=== PATIENT | female | born 1995 | race Caucasian/White ===

== ENCOUNTER → 2025-08-30 16:22 | Outpatient (CLI) | payer OTHER, SELFPAY ==
[2025-08-30 18:06] LABS: Urine N gonorrhoeae NOT DETECTED
[2025-08-30 18:07] LABS: Urine Chlamydia NOT DETECTED
== END ==
PROVIDERS: PCP Specialist; Visit Provider Obstetrics & Gynecology
DX: Z34.01 Encounter for supervision of normal first pregnancy, first trimester (principal)
CPT/HCPCS: 87491; 87591

== ENCOUNTER → 2025-09-09 10:46 | Outpatient (CLI) | payer OTHER, SELFPAY ==
[2025-09-09 11:59] LABS: Natera Collection Specimen Collected
[2025-09-09 12:00] LABS: Add Manual Diff / Slide Review NO; Hematocrit 37.1 % (36-46); Hemoglobin 12.4 g/dL (12.0-16.0); Lymphocytes Absolute Auto 1700 /uL (1100-4500); Mean Corpuscular HGB Conc 33.4 % (30-36); Mean Corpuscular Hemoglobin 27.1 PG (26-34); Mean Corpuscular Volume 81.3 fL (80-100); Platelet Count 275 X10^3/uL (150-400)
[2025-09-10 18:47] LABS: Hepatitis B Surface Antigen NEGATIVE s/c (NEGATIVE)
[2025-09-10 19:05] LABS: HIV 1 & 2 Ab/Ag 4th Gen Combo NEGATIVE (NEGATIVE); Hep C Virus Ab w/Reflex Quant NEGATIVE s/c (NEGATIVE)
== END ==
PROVIDERS: PCP Specialist; Referring Provider Obstetrics & Gynecology; Visit Provider Obstetrics & Gynecology
DX: Z34.01 Encounter for supervision of normal first pregnancy, first trimester (principal)
CPT/HCPCS: 36415; 80055; 86787; 86803; 86850; 86900; 86901; 87389

== ENCOUNTER → 2025-09-30 11:47 | Outpatient (CLI) | payer OTHER, SELFPAY ==
[2025-09-30 15:47] LABS: Urine N gonorrhoeae NOT DETECTED
[2025-09-30 15:51] LABS: Urine Chlamydia NOT DETECTED
== END ==
PROVIDERS: Obstetrics & Gynecology; PCP Specialist; Referring Provider Specialist; Visit Provider Specialist
DX: Z34.01 Encounter for supervision of normal first pregnancy, first trimester (principal); Z3A.14 14 weeks gestation of pregnancy
CPT/HCPCS: 36415; 82105; 87086; 87491; 87591

== ENCOUNTER → 2025-10-28 10:19 | Outpatient (CLI) | payer OTHER, SELFPAY ==
--- NOTE | 2025-10-28 10:20 | DI.US.S_ITS ---
PROCEDURE: US OB >= 14 WEEKS FETUS INDICATIONS: anatomy scan OUTSIDE/PRIOR DATING DATA: Provided working YESENIA is 03/27[birth year]26 TECHNIQUE: Real-time scanning was performed of the fetus, with image documentation and biometric measurements. COMPARISON: None. FINDINGS: General: A single living intrauterine gestation is present. Presentation: Variable Placenta: Placental position is posterior , without previa. Amniotic fluid index: 10.8 cm, normal range is 5-24 cm. Single deepest vertical pocket is 3.5 cm. heart rate: 150 beats per minute. Maternal cervical canal: 3.9 cm long. Normal lower limit is 2.5 cm. biometrics: Biparietal diameter: 4.4 cm, 19 weeks and 2 days Head circumference: 15.2 cm, 18 weeks and 2 days Abdominal circumference: 13.1 cm 18 weeks and 5 days Femur length: 2.9 cm 18 weeks and 6 days Clinically estimated gestational age: 18 weeks and 4 days Composite gestational age from present scan: 18 weeks and 6 days Estimated weight and percentile: 254 g, 55% Anatomic survey: Neuro: Ventricles are non-dilated at less than 10 mm. Cisterna magna is normal at 3-11 mm. Cerebellum is normal in size and morphology. Nuchal skin fold: Normal at less than 6 mm between 14-21 weeks gestational age. Face: Nose and lips, facial profile are normal. Spine: No evidence for spina bifida. Heart: Outflow tracts appear intact. Four-chamber view not well seen. Diaphragm: Diaphragm is intact. Stomach: Left-sided stomach is present. Kidneys: No hydronephrosis. Normal is less than 5 mm in 2nd trimester, less than 7 mm in 3rd trimester. Cord: 3-vessel cord has orthotopic insertion. Bladder: Normal in size. Extremities: All 4 extremities identified. IMPRESSION: Intrauterine gestation seen with cardiac motion. Normal OLIVIA. EFW within normal limits at 55 percentile. Cardiac four-chamber view was not well seen. No significant abnormalities otherwise on routine anatomic survey. Short interval follow-up is recommended. Dictated by: Santos Dsouza M.D. on 10/28/2025 at 20:10 Approved by: Santos Dsouza M.D. on 10/28/2025 at 20:15
== END ==
PROVIDERS: PCP Specialist; Visit Provider Obstetrics & Gynecology
DX: Z34.02 Encounter for supervision of normal first pregnancy, second trimester (principal); Z3A.18 18 weeks gestation of pregnancy
CPT/HCPCS: 36415; 76811; 82105